=== PATIENT | female | born 1955 | race Caucasian/White ===

== ENCOUNTER 2016-07-11 16:45 | Emergency (ER) | payer MEDICARE, MEDICAID ==
[~2016-07-11] VITALS: Ht 167.6 cm; Wt 121.4 kg
[2016-07-11] MEDS ORDERED: SODIUM CHLORIDE FLUSH 10 ML SYR IV PRN (18:45)
[2016-07-11] MEDS ORDERED: SODIUM CHLORIDE FLUSH 3 ML SYR IV PRN (18:45)
--- NOTE | 2016-07-11 19:02 | NUR ---
HOSPITALIST IN ROOM WITH PT
[2016-07-11 19:08] LABS: BASOPHILS % (AUTO) 0 % (0-2); EOSINOPHILS # (AUTO) 0.1 10^3uL; EOSINOPHILS % (AUTO) 1 % (0-4); LYMPHOCYTES # (AUTO) 1.2 X10^3; MEAN CORPUSCULAR VOLUME 85 FL (80-100); MONOCYTES # (AUTO) 0.9 X10^3; MONOCYTES % (AUTO) 9 % (3-11); NEUTROPHILS # (AUTO) 8.1 X10^3; NEUTROPHILS % (AUTO) 78 % (51-67); PLATELET COUNT 235 10^3uL (150-450)
[2016-07-11 19:16] LABS: ALBUMIN 4.3 g/dL (3.4-5.0); CALCULATED IONIZED CALCIUM 4.1 mg/dL (3.8-4.6); MAGNESIUM* 1.7 mg/dL (1.6-2.3); TOTAL PROTEIN 7.3 g/dL (6.4-8.5)
[2016-07-11] MEDS ORDERED: HEPARIN DRIP 25000 UNIT/250 ML 250 ML IV SCH (19:37)
[2016-07-11] MEDS ORDERED: HEPARIN 5000 UNIT/0.5 ML SYRINGE IV ONE (19:40)
[2016-07-11] MEDS ORDERED: HEPARIN 5000 UNIT/0.5 ML SYRINGE IV PRN ×2 (19:40)
[2016-07-11] MEDS ORDERED: HEPARIN 1000 UNIT/ML 2 ML VIAL IV ONE ×2 (20:01→20:15)
[2016-07-11 22:00] VITALS: BP 124/73
== END 2016-07-11 21:59 | disposition short-term general hospital (02) ==
LOC: ED 16:48 → MED/SURG 19:06 → UNDOADMOB 19:06 → ED 21:59
DX: I82.C11 Acute embolism and thrombosis of right internal jugular vein (principal); Z95.828 Presence of other vascular implants and grafts
CPT/HCPCS: 36415; 80053; 83735; 85025; 85610; 85730; 93971; 99283; J1644

== ENCOUNTER → 2016-07-11 | Outpatient (CLI) | payer MEDICARE, MEDICAID | LOC: EMS 22:45 | PROVIDERS: ATTEND Family Medicine | DX: I82.C11 Acute embolism and thrombosis of right internal jugular vein (principal) ==

== ENCOUNTER → 2016-08-21 | Outpatient (CLI) | payer MEDICARE, MEDICAID | LOC: RAD 08:51 | PROVIDERS: ATTEND Internal Medicine Hematology & Oncology | DX: N63 Unspecified lump in breast (principal); R05 Cough | CPT/HCPCS: 76642; G0206 ==

== ENCOUNTER → 2016-08-25 | Outpatient (CLI) | payer MEDICARE, MEDICAID | LOC: RAD 14:29 | PROVIDERS: ATTEND Internal Medicine Hematology & Oncology | DX: R05 Cough (principal) | CPT/HCPCS: 71020 ==

== ENCOUNTER → 2016-09-08 | Outpatient (CLI) | payer MEDICARE, MEDICAID ==
[~2016-09-08] MED LIST: DOCU100C8 PO; EXEM25TA4 PO; GBPN300C PO; HYDR-33 PO; HYDR50TA3 PO; METF500T4 PO; MIRT15TA98 PO; MNTL10T PO; NF-CRES10T PO; NF-VITD400 PO; OMEG500C3 PO; OMEP40CA36 PO; OXB5T PO
== END ==
LOC: RT 13:49
PROVIDERS: ATTEND Internal Medicine Hematology & Oncology
DX: R07.9 Chest pain, unspecified (principal)
CPT/HCPCS: 36415; 84484; 93005

== ENCOUNTER → 2016-09-08 | Outpatient (REF) | payer MEDICARE, MEDICAID ==
[2016-09-08 13:43] LABS: BASOPHILS % (AUTO) 1 % (0-2); EOSINOPHILS # (AUTO) 0.1 10^3uL; EOSINOPHILS % (AUTO) 2 % (0-4); LYMPHOCYTES # (AUTO) 1.2 X10^3; MEAN CORPUSCULAR HGB CONC 32.6 g/dL (31.0-37.0); MEAN CORPUSCULAR VOLUME 80 FL (80-100); MEAN PLATELET VOLUME 9.2 FL (6.0-9.5); MONOCYTES # (AUTO) 0.5 X10^3; MONOCYTES % (AUTO) 10 % (3-11); NEUTROPHILS # (AUTO) 3.4 X10^3; NEUTROPHILS % (AUTO) 64 % (51-67); PLATELET COUNT 261 10^3uL (150-450); WHITE BLOOD COUNT 5.24 10^3uL (4.0-11.0)
[2016-09-08 13:44] LABS: MEAN CORPUSCULAR HEMOGLOBIN 26.2 PG (26.0-34.0)
[2016-09-08 14:07] LABS: ALBUMIN 4.2 g/dL (3.4-5.0); ANION GAP 15.3 MEQ/L (3-15); CALCULATED IONIZED CALCIUM 4.4 mg/dL (3.8-4.6); TOTAL PROTEIN 6.5 g/dL (6.4-8.5)
== END ==
LOC: LAB 13:29
PROVIDERS: ATTEND Internal Medicine Hematology & Oncology
DX: C50.112 Malignant neoplasm of central portion of left female breast (principal); D05.12 Intraductal carcinoma in situ of left breast
CPT/HCPCS: 80053; 82533; 85025

== ENCOUNTER → 2016-09-09 | Outpatient (CLI) | payer MEDICARE, MEDICAID ==
--- NOTE | 2016-09-09 12:30 | Diagnostic Imaging Report ---
PROCEDURE: CT chest pelvis with and abdomen with and without contrast. TECHNIQUE: Multiple contiguous axial images were obtained through the chest, abdomen and pelvis after uneventful bolus administration of intravenous contrast. Precontrast acquisitions were acquired through the abdomen. INDICATION: Breast cancer. COMPARISON: I have no priors. FINDINGS: CHEST: Previous left mastectomy noted. There is no axillary adenopathy or fluid collection. There are calcified benign granulomatous foci within the lungs as well as subcarinal and right hilar lymph nodes. No noncalcified or suspicious thoracic nodes. There is a small hiatal hernia. There is no pleural or pericardial effusion. No noncalcified or suspicious pulmonary nodule and no evidence of pneumonia. No acute or suspicious soft tissue or osseous chest wall abnormality. ABDOMEN AND PELVIS: Liver, gallbladder, bile ducts, spleen, adrenals and pancreas unremarkable. There is no abdominal, pelvic, mesenteric or retroperitoneal lymphadenopathy. The unobstructed kidneys appeared normal. The appendix is normal. There is few noninflamed sigmoid diverticuli without diverticulitis. Uterus, adnexa and urinary bladder are unremarkable. There is no ascites, abscess, hematoma, aneurysm or fluid collection. No acute or suspicious osseous abnormality. IMPRESSION: There were no findings to suggest metastatic disease or acute pathology at CT chest, abdomen and pelvis. Dictated by: Dictated on workstation # [id number]
== END ==
LOC: RAD 07:53
PROVIDERS: ATTEND Internal Medicine Hematology & Oncology
DX: C50.112 Malignant neoplasm of central portion of left female breast (principal); R10.9 Unspecified abdominal pain; R00.0 Tachycardia, unspecified; Z03.89 Encounter for observation for other suspected diseases and conditions ruled out; R42 Dizziness and giddiness
CPT/HCPCS: 71260; 74178; 93306; Q9967

== ENCOUNTER 2016-10-22 13:40 | Emergency (ER) | payer MEDICARE, MEDICAID ==
[~2016-10-22] VITALS: Ht 167.6 cm; Wt 123.0 kg
[2016-10-22] MEDS ORDERED: KETOROLAC 60 MG/2 ML (TORADOL) VIAL IM ONE (14:10)
--- NOTE | 2016-10-22 14:59 | Diagnostic Imaging Report ---
INDICATION: History of breast CA. Chest pain. Comparison made with previous CT of the chest from 09/09/2016. FINDINGS: Lungs are well-aerated. No infiltrates or masses have developed. Calcified granulomas are again noted with the largest in the right midlung, unchanged. Right Port-A-Cath remains in good position. Heart is not enlarged. No evidence of pulmonary edema. No pneumothorax or pleural effusion. No bony abnormalities. IMPRESSION: Stable PA and lateral chest with calcified granulomatous changes. No changes are seen to suggest metastatic disease. Report given to Jeremías Davies) at 3:31 p.m. 10/22/2016/mihir Dictated by: Dictated on workstation # [id number]
--- NOTE | 2016-10-22 15:19 | Diagnostic Imaging Report ---
INDICATION: Cough with pain intermittently x3 months.. TECHNIQUE: 4 views of the left ribs at 2:28 PM. CORRELATION STUDY: Chest 08/25/2016 FINDINGS: Left ribs intact. No acute fracture. Left lung is clear. Portions of a right-sided Kshsrb-o-Mtov catheter are visualized. Tip is superimposed over the right lung apex. Degenerative changes are visualized of the thoracic and lumbar spine. IMPRESSION: Negative for acute bony abnormality about the left ribs. Dictated by: Dictated on workstation # [id number]
[2016-10-22] MEDS ORDERED: NF-TORA10 PO (15:20)
[2016-10-22 15:27] VITALS: BP 132/83
== END 2016-10-22 15:27 | disposition home or self-care (01) ==
LOC: ED 13:42
DX: R09.1 Pleurisy (principal); R07.89 Other chest pain
CPT/HCPCS: 71020; 71100; 96372; 99283; J1885